=== PATIENT | female | born 2000 | race Caucasian/White ===

== ENCOUNTER 2018-10-23 17:41 | Emergency (ER) | payer OTHER ==
[~2018-10-23] VITALS: Ht 154.9 cm; Wt 54.0 kg
[2018-10-23 17:55] VITALS: BP 122/87
--- NOTE | 2018-10-23 18:00 | NUR ---
PT VSS, NOT IN DISTRESS, AMB TO LOBBY WITH PARTNER.
--- NOTE | 2018-10-23 20:35 | NUR ---
PT AMBULATED TO BED 03
--- NOTE | 2018-10-23 20:44 | NUR ---
Dr. Llamas evaluating patient at bedside.
--- NOTE | 2018-10-23 20:54 | NUR ---
PT BIB FAMILY C/O RASH THAT STARTED 1 WEEK AGO ON BREAST AND HAS SINCE WORSENED. PT STATES VERY ITCHY. DENIES CHANGING SOAPS; DETERGENTS. PT REPORTS SHE IS 3 MONTHS ; IS RECIEVING CARE. VSS. ER TO SEE PT. HX: DENIES RX: ZOFRAN
--- NOTE | 2018-10-23 20:54 | NUR ---
UNABLE TO OBTAIN HEART TONES, CALLED L&D TO OBTAIN HEART TONES.
--- NOTE | 2018-10-23 21:04 | NUR ---
PER L&D NURSE HEART TONE 140, ER INFORMED.
[2018-10-23 21:24] VITALS: BP 122/87
--- NOTE | 2018-10-23 21:25 | NUR ---
Patient discharged with v/s stable. Written and verbal after care instructions given and explained. Patient alert, oriented and verbalized understanding of instructions. Ambulatory with steady gait. All questions addressed prior to discharge. ID band removed. Patient advised to follow up with PMD. Rx of HYDROCOTRSIONE, BENEDRYL given. Patient educated on indication of medication including possible reaction and side effects. Opportunity to ask questions provided and answered.
== END 2018-10-23 21:25 | disposition home or self-care (01) ==
LOC: MED 17:41
DX: T78.40XA Allergy, unspecified, initial encounter (principal); X58.XXXA Exposure to other specified factors, initial encounter
CPT/HCPCS: 81002; 81025; 99283